=== PATIENT | female | born 1945 | race Caucasian/White ===

== ENCOUNTER 2018-12-19 19:08 | Outpatient (CLI) | payer MEDICARE | END 2018-12-19 19:09 | disposition critical access hospital (66) | LOC: EMS 19:08 | PROVIDERS: ATTEND Surgery | DX: R51 Headache (principal); M54.2 Cervicalgia; R42 Dizziness and giddiness; W07.XXXA Fall from chair, initial encounter | CPT/HCPCS: A0425; A0429 ==

== ENCOUNTER 2018-12-19 19:22 | Emergency (ER) | payer MEDICARE ==
--- NOTE | 2018-12-19 19:37 | ED Physician Documentation ---
History of Present Illness - Stated complaint Stated Complaint: FALL/HEAD INJURY - Chief complaint Chief Complaint: Trauma Hd/Nk - History obtained from History obtained from: Patient - History of Present Illness Timing: How many minutes ago (30) Pain level max: 6 Pain level now: 5 - Additonal information Additional information: 73-year-old female presents to the emergency department after she was sitting on a chair with her dog's leash wrapped around the chair leg when the dog took off after a rabbit. She fell backwards out of the chair striking her head and neck on the ground. Complains of head and neck pain currently. She is not on blood thinners. Does have a history of arthritis in the neck. No loss of consciousness. No vomiting. Mild nausea. Worse with movement and better with rest. Placed in a c-collar by EMS. Review of Systems Constitutional: denies: Fever, Chills Skin: denies: Rash Musculoskeletal: reports: Neck pain. denies: Back pain, Extremity pain Neurologic: denies: Focal weakness, Numbness, Confused, Altered mental status, LOC PD PAST MEDICAL HISTORY - Past Medical History Cardiovascular: None Endocrine/Autoimmune: None Psych: None Musculoskeletal: Osteoarthritis, Fatigue, Chronic back pain - Past Surgical History Ortho: Knee replacement, Arthroscopic surgery - Allergies Allergies/Adverse Reactions: Allergies Allergy/AdvReac Type Severity Reaction Status Date / Time No Known Drug Allergies Allergy Verified 12/19/18 19:34 PD ED PE NORMAL - Vitals Vital signs reviewed: Yes - General General: Alert and oriented X 3, No acute distress, Well developed/nourished - HEENT HEENT: PERRL, EOMI, Ears normal, Moist mucous membranes, Pharynx benign, Other (Tender palpation over the occiput. No palpable skull fractures. No significant hematoma.) - Neck Neck: Supple, no meningeal sign, Other (Mild midline cervical spine tenderness to palpation. No step-off or deformity.) - Cardiac Cardiac: RRR, Strong equal pulses - Respiratory Respiratory: No respiratory distress, Clear bilaterally - Abdomen Abdomen: Soft, Non tender, Non distended - Back Back: No spinal TTP - Derm Derm: Warm and dry - Extremities Extremities: Normal ROM s pain - Neuro Neuro: Alert and oriented X 3, irrigator gravity flow 2-12 intact, No motor deficit, No sensory deficit, Normal speech Eye Opening: Spontaneous Motor: Obeys Commands Verbal: Oriented GCS Score: 15 - Psych Psych: Normal mood, Normal affect Results - Vitals Vitals: Vital Signs - 24 hr 12/19/18 12/19/18 19:28 20:48 Temperature 37.0 C Heart Rate 65 69 Respiratory 19 15 Rate Blood Pressure 153/83 H 145/85 H O2 Saturation 95 97 Oxygen O2 Source Room air - Rads (name of study) Head CT Radiology: Prelim report reviewed, EMP read contemporaneously, See rad report (No acute abnormality) Cervical spine CT Radiology: Prelim report reviewed, EMP read contemporaneously, See rad report (No acute abnormality) PD MEDICAL DECISION MAKING - ED course Complexity details: reviewed results, re-evaluated patient, considered differential, d/w patient, d/w family ED course: 73-year-old female status post ground level fall. No acute findings on head CT or cervical spine CT. Collar removed after cervical spine CT. Full range of motion present. No neurological deficits. No altered mental status or intoxication. No distracting injuries. She does have central canal stenosis on her CT scan we will follow-up with her doctor for this. Patient counseled regarding signs and symptoms for which I believe and urgent re-evaluation would be necessary. Patient with good understanding of and agreement to plan and is comfortable going home at this time This document was made in part using voice recognition software. While efforts are made to proofread this document, sound alike and grammatical errors may occur. Departure - Departure Disposition: 01 Home, Self Care Clinical Impression: Head injury Qualifiers: Encounter type: initial encounter Qualified Code(s): S09.90XA - Unspecified injury of head, initial encounter Condition: Good Instructions: ED Head Injury Closed Follow-Up: Elmer Saab MD [Primary Care Provider] - Within 1 week Comments: Your CT scans do not show any acute abnormalities. Return if you worsen. Your CT of your neck shows: No acute fracture or subluxation. Cervical spondylosis, most severe from C5-T1 with severe spinal canal narrowing at C6-C7. this can be followed up with your doctor. Discharge Date/Time: 12/19/18 20:57
--- NOTE | 2018-12-19 20:38 | CT Report ---
Reason: neck pain s/p fall Procedure Date: 12/19/2018 Accession Number: [id number] / [id number] Procedure: CT - CERVICAL SPINE WO CPT Code: FULL RESULT: EXAM: CT CERVICAL SPINE WITHOUT CONTRAST DATE: 12/19/2018 08:03 PM. HISTORY: Neck pain s/p fall. COMPARISONS: None. TECHNIQUE: Thin-section axial images were acquired of the cervical spine without contrast. Post-processing: Coronal and sagittal reformats. Other: None. In accordance with CT protocol optimization, one or more of the following dose reduction techniques were utilized for this exam: automated exposure control, adjustment of mA and/or KV based on patient size, or use of iterative reconstructive technique. FINDINGS: Alignment: Within normal limits. No scoliosis or spondylolisthesis. Bones: No acute fractures. Severe degenerative narrowing of C5-T1 with sclerosis and osteophytes. Posterior disk osteophyte complex C6-C7 causes severe spinal canal narrowing. Other: The paravertebral and prevertebral soft tissues are unremarkable. Visualized thyroid is unremarkable. The partially imaged lung apices are clear. IMPRESSION: No acute fracture or subluxation. Cervical spondylosis, most severe from C5-T1 with severe spinal canal narrowing at C6-C7. RADIA
--- NOTE | 2018-12-19 20:38 | CT Report ---
Reason: head pain s/p fall Procedure Date: 12/19/2018 Accession Number: [id number] / [id number] Procedure: CT - HEAD WO CPT Code: FULL RESULT: EXAM: CT HEAD EXAM DATE: 12/19/2018 08:04 PM. CLINICAL HISTORY: Head pain s/p fall. COMPARISON: None. TECHNIQUE: Multiaxial CT images were obtained from the foramen magnum to the vertex. Reformats: Sagittal and coronal. IV contrast: None. In accordance with CT protocol optimization, one or more of the following dose reduction techniques were utilized for this exam: automated exposure control, adjustment of mA and/or KV based on patient size, or use of iterative reconstructive technique. FINDINGS: Parenchyma: No intraparenchymal hemorrhage. No evidence of mass, midline shift or CT findings of acute territorial infarction. Matos-white differentiation is distinct. Extraaxial Spaces: No subdural or epidural collections identified. Mild symmetric dural thickening is present at the tentorium bilaterally. Ventricles: No hydrocephalus Sinuses: Bilateral lens extractions. Imaged paranasal sinuses are unremarkable. Bones: No evidence of acute fracture or calvarial defect. Other: None. IMPRESSION: No acute intracranial abnormalities. RADIA
[2018-12-19 20:49] VITALS: BP 145/85
== END 2018-12-19 20:57 | disposition home or self-care (01) ==
LOC: EDUNIT# → ED 19:22
DX: S09.90XA Unspecified injury of head, initial encounter (principal); W07.XXXA Fall from chair, initial encounter; Y93.89 Activity, other specified
CPT/HCPCS: 70450; 72125; 99282; 99284

== ENCOUNTER 2020-09-28 15:57 | Outpatient (CLI) | payer MEDICARE ==
[2020-09-28 16:09] LABS: BASOPHILS # (AUTO) 0.1 10^3/uL (0.0-0.1); BASOPHILS % (AUTO) 0.9 %; EOSINOPHILS # (AUTO) 0.1 10^3/uL (0.0-0.7); HCT - HEMATOCRIT 44.6 % (37.0-47.0); HGB - HEMOGLOBIN 14.4 g/dL (12.0-16.0); LYMPHOCYTES # (AUTO) 1.7 10^3/uL (1.5-3.5); LYMPHOCYTES % (AUTO) 30.2 %; MEAN CORPUSCULAR HEMOGLOBIN 31.6 pg (27.0-31.0); MEAN CORPUSCULAR HGB CONC 32.3 g/dL (32.0-36.0); MEAN CORPUSCULAR VOLUME 97.8 fL (81.0-99.0); MEAN PLATELET VOLUME 8.8 fL (7.9-10.8); MONOCYTES # (AUTO) 0.4 10^3/uL (0.0-1.0); MONOCYTES % (AUTO) 7.5 %; NEUTROPHILS # (AUTO) 3.3 10^3/uL (1.5-6.6); NEUTROPHILS % (AUTO) 59.2 %; PLT - PLATELET COUNT 211 10^3/uL (130-450); RED BLOOD COUNT 4.56 10^6/uL (4.20-5.40); RED CELL DISTRIBUTION WIDTH 12.9 % (12.0-15.0); WHITE BLOOD COUNT 5.6 x10^3/uL (4.8-10.8)
[2020-09-28 16:19] LABS: CREATININE 0.6 mg/dL (0.4-1.0)
== END 2020-09-28 15:58 | disposition home or self-care (01) ==
LOC: LAB 15:57
PROVIDERS: ATTEND Internal Medicine
DX: I48.0 Paroxysmal atrial fibrillation (principal); I77.810 Thoracic aortic ectasia; Z79.01 Long term (current) use of anticoagulants
CPT/HCPCS: 36415; 82565; 84460; 85025

== ENCOUNTER 2022-09-04 13:20 | Emergency (ER) | payer MEDICARE ==
[2022-09-04 13:31] VITALS: BP 166/81
--- NOTE | 2022-09-04 14:37 | ED Physician Documentation ---
PD HPI LOWER EXT INJURY - Stated complaint Stated Complaint: LT FOOT SWOLLEN - Chief complaint Chief Complaint: Ext Problem - History obtained from History obtained from: Patient - Additional information Additional information: The patient comes to the emergency department chief complaint of left ankle injury about a month ago. She states that she rolled her ankle and at the time, she noticed pain and swelling for several days but then it seemed to get better. The patient denies reinjury and has been walking around on her ankle for the past few weeks but states that suddenly flared up yesterday. She is really not sure why as she did not reinjure it and did not feel like she was doing more activity than usual. She denies any other complaints at this time. She was wearing sandals when the event happened, and does note that since the flareup, she has been wearing tennis shoes which do give her more support and feel better than the sandals. She has been walking but with a limp. 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 : Incontinence HEENT: None Psych: None Musculoskeletal: Osteoarthritis, Fatigue, Chronic back pain Derm: None - Past Surgical History Past Surgical History: Yes Ortho: Knee replacement, Arthroscopic surgery - Present Medications Home Medications: Ambulatory Orders Medication Instructions Recorded Confirmed Apixaban [Eliquis] 5 mg PO DAILY 09/04/22 09/04/22 Flecainide Acetate 100 mg PO DAILY 09/04/22 09/04/22 Metoprolol Succinate [Toprol Xl] 50 mg PO DAILY 09/04/22 09/04/22 - Allergies Allergies/Adverse Reactions: Allergies Allergy/AdvReac Type Severity Reaction Status Date / Time No Known Drug Allergies Allergy Verified 09/04/22 13:30 - Social History Does the pt smoke?: No Smoking Status: Never smoker Does the pt drink ETOH?: No Does the pt have substance abuse?: No - Immunizations Immunizations are current?: No - POLST Patient has POLST: No PD ED PE NORMAL - Vitals Vital signs reviewed: Yes - General General: Alert and oriented X 3, No acute distress, Well developed/nourished - HEENT HEENT: Atraumatic, PERRL, EOMI, Moist mucous membranes - Neck Neck: Supple, no meningeal sign - Cardiac Cardiac: Strong equal pulses - Respiratory Respiratory: No respiratory distress - Derm Derm: Normal color, Warm and dry, No rash - Extremities Extremities: No deformity, Other (Minimal edema, left lateral malleolus.) - Neuro Neuro: Alert and oriented X 3, parts fabricator 2-12 intact, No motor deficit, No sensory deficit, Normal speech - Psych Psych: Normal mood, Normal affect Results - Vitals Vitals: Vital Signs - 24 hr 09/04/22 09/04/22 13:23 14:05 Temperature 36.3 C L Heart Rate 58 L Respiratory 16 16 Rate Blood Pressure 166/81 H O2 Saturation 99 Oxygen O2 Source Room air - Rads (name of study) Left ankle x-ray series Relevant Findings:: Final report received, See rad report (DJD otherwise negative) PD Medical Decision Making - ED course Complexity details: reviewed results, re-evaluated patient, considered differential, d/w patient ED course: The patient was worked up with x-ray series of the left ankle, which showed some degenerative changes but otherwise negative. The patient declined an Aircast or crutches and stated she would just wear her tennis shoes. She was mainly concerned whether there was any fracture or not. We have discussed home management of the symptoms, as well as the usual indications for follow-up. Departure - Departure Disposition: 01 Home, Self Care Clinical Impression: Left ankle sprain Qualifiers: Encounter type: initial encounter Involved ligament of ankle: unspecified ligament Qualified Code(s): S93.402A - Sprain of unspecified ligament of left ankle, initial encounter Condition: Stable Instructions: ED Sprain Ankle W X Ray Comments: Your ankle x-rays look good. There is no evidence of any broken bones. You most likely sprained your ankle and this can cause some flareups on and off, even with normal activity, over the ensuing months. You may use of a Velcro ankle brace if you wish although you have declined this today. If you have a flareup, avoid strenuous activity or walking on uneven ground. Prop your ankle up when you can and use ice packs and ibuprofen to help with the discomfort. Wear supportive shoes. You may follow-up with your primary care physician as needed.
--- NOTE | 2022-09-04 15:20 | XRAY Report ---
PROCEDURE: Ankle 3 View LT INDICATIONS: pain/tenderness L FOOT. TECHNIQUE: 3 views of the ankle were acquired. COMPARISON: None. FINDINGS: Bones: No fractures or dislocations. Ankle mortise is normally aligned. No suspicious bony lesions . Ossifications inferior to the medial malleolus and lateral malleolus are consistent with remote t rauma. There is posttraumatic degenerative change at the tibiotalar joint. Soft tissues: No tibiotalar joint effusion. Achilles tendon appears normal. Soft tissue edema. IMPRESSION: Remote trauma with posttraumatic degenerative change at the tibiotalar joint. No evidence acute bony abnormality of the left ankle. Reviewed by: Nehemias Suarez MD on 09/04/2022 3:19 PM PDT Approved by: Nehemias Suarez MD on 09/04/2022 3:19 PM PDT Station ID: [id number]
== END 2022-09-04 14:57 | disposition home or self-care (01) ==
LOC: ED 13:20
DX: S93.402D Sprain of unspecified ligament of left ankle, subsequent encounter (principal); X50.1XXD Overexertion from prolonged static or awkward postures, subsequent encounter
CPT/HCPCS: 99283